=== PATIENT | female | born 1965 | race Caucasian/White ===

== ENCOUNTER 2019-01-30 23:20 | Emergency (ER) | payer OTHER, MEDICAID ==
[~2019-01-30] VITALS: Ht 162.6 cm; Wt 90.4 kg
[2019-01-30 23:30] VITALS: Ht 162.6 cm; Wt 90.4 kg
[2019-01-31 00:22] LABS: BASOPHIL % 0.4 % (0-2); PLATELET COUNT 199 x10^3mcL (130-400); RED CELL DISTRIBUTION WIDTH 14.1 % (11.5-14.5)
[2019-01-31 00:33] LABS: CALCIUM 8.9 mg/dL (8.5-10.1); CARBON DIOXIDE 30.5 mmol/L (21-32); CHLORIDE SERUM 102 mmol/L (98-107); CREATININE SERUM 0.9 mg/dL (0.6-1.0); GFR1 > 60 mL/min; GLUCOSE SERUM 125 mg/dL (74-106); SODIUM SERUM 141 mmol/L (136-145)
[2019-01-31 00:45] LABS: ALBUMIN 3.6 g/dL (3.4-5.0); ALKALINE PHOSPHATASE 118 U/L (46-116); ALT/SGPT 51 U/L (14-59); AST/SGOT 52 U/L (15-37); BILIRUBIN TOTAL 0.58 mg/dL (0.20-1.00); LIPASE 112 IU/L (73-393); TOTAL PROTEIN, SERUM 8.2 g/dL (6.4-8.2)
[2019-01-31 02:27] VITALS: BP 128/59
== END 2019-01-31 02:27 | disposition home or self-care (01) ==
LOC: ED 23:20
PROVIDERS: Emergency Medicine
DX: K80.20 Calculus of gallbladder without cholecystitis without obstruction (principal); I10 Essential (primary) hypertension
CPT/HCPCS: 36415; Q0092

== ENCOUNTER 2020-01-07 17:09 | Emergency (ER) | payer OTHER, MEDICAID ==
[~2020-01-07] VITALS: Ht 157.5 cm; Wt 91.6 kg
[2020-01-07 17:21] VITALS: Ht 157.5 cm; Wt 91.6 kg
[2020-01-07 18:26] LABS: CALCIUM 9.5 mg/dL (8.5-10.1); CARBON DIOXIDE 26.9 mmol/L (21-32); CHLORIDE SERUM 102 mmol/L (98-107); CREATININE SERUM 0.9 mg/dL (0.6-1.0); GFR1 > 60 mL/min; GLUCOSE SERUM 118 mg/dL (74-106); POTASSIUM SERUM 3.6 mmol/L (3.5-5.1); SODIUM SERUM 139 mmol/L (136-145)
[2020-01-07 18:28] LABS: BASOPHIL % 2.2 % (0-2); PLATELET COUNT 169 x10^3mcL (130-400); RED CELL DISTRIBUTION WIDTH 14.2 % (11.5-14.5)
[2020-01-07 18:31] LABS: ALBUMIN 3.9 g/dL (3.4-5.0); ALKALINE PHOSPHATASE 172 U/L (46-116); ALT/SGPT 269 U/L (14-59); AST/SGOT 289 U/L (15-37); BILIRUBIN TOTAL 0.86 mg/dL (0.20-1.00)
[2020-01-07 18:32] LABS: TOTAL PROTEIN, SERUM 8.3 g/dL (6.4-8.2)
[2020-01-07 19:23] LABS: LIPASE 3693 IU/L (73-393)
[2020-01-07 22:52] VITALS: BP 148/82
== END 2020-01-07 22:52 | disposition home or self-care (01) ==
LOC: ED 17:09
PROVIDERS: Student in an Organized Health Care Education/Training Program
DX: K85.90 Acute pancreatitis without necrosis or infection, unspecified (principal); K80.20 Calculus of gallbladder without cholecystitis without obstruction; I10 Essential (primary) hypertension
CPT/HCPCS: 82962; J1885; Q0162; Q9967

== ENCOUNTER 2020-02-03 02:47 | Emergency (ER) | payer OTHER, MEDICAID ==
[~2020-02-03] VITALS: Ht 175.3 cm; Wt 90.7 kg
[2020-02-03 02:57] VITALS: Ht 175.3 cm; Wt 90.7 kg
[2020-02-03 05:40] LABS: BASOPHIL % 0.6 % (0.2-1.3); PLATELET COUNT 193 x10^3mcL (179-408); RED CELL DISTRIBUTION WIDTH 13.6 % (12.3-17.7)
[2020-02-03 05:50] LABS: CALCIUM 9.1 mg/dL (8.5-10.1); CARBON DIOXIDE 29.7 mmol/L (21-32); CHLORIDE SERUM 104 mmol/L (98-107); CREATININE SERUM 0.9 mg/dL (0.6-1.0); GFR1 > 60 mL/min; GLUCOSE SERUM 126 mg/dL (74-106); POTASSIUM SERUM 3.9 mmol/L (3.5-5.1); SODIUM SERUM 140 mmol/L (136-145)
[2020-02-03 05:54] LABS: ALKALINE PHOSPHATASE 109 U/L (46-116); ALT/SGPT 29 U/L (14-59); AST/SGOT 12 U/L (15-37); BILIRUBIN TOTAL 0.37 mg/dL (0.20-1.00); LIPASE 89 IU/L (73-393)
[2020-02-03 05:57] LABS: TOTAL PROTEIN, SERUM 8.6 g/dL (6.4-8.2)
[2020-02-03 08:08] VITALS: BP 126/66
== END 2020-02-03 08:08 | disposition home or self-care (01) ==
LOC: ED 02:47
PROVIDERS: Emergency Medicine
DX: K80.50 Calculus of bile duct without cholangitis or cholecystitis without obstruction (principal); I10 Essential (primary) hypertension
CPT/HCPCS: J2270; J2405; J7030